=== PATIENT | male | born 1940 | race Caucasian/White ===

== ENCOUNTER → 2018-10-11 | Outpatient (REF) | payer MEDICARE, OTHER ==
[2018-10-11 19:54] LABS: APPEARANCE, URINE CLEAR (CLEAR); BACTERIA, URINE AUTO NEGATIVE (NEGATIVE); BILIRUBIN, URINE AUTO NEGATIVE (NEGATIVE); BLOOD, URINE BLOOD NEGATIVE (NEGATIVE); COLOR, URINE YELLOW (YELLOW); GLUCOSE, URINE (UA) AUTO NEGATIVE (NEGATIVE); KETONE, URINE AUTO NEGATIVE (NEGATIVE); LEUKOCYTE ESTERASE, URINE AUTO TRACE (NEGATIVE); MUCUS, URINE SMALL (NEGATIVE); NITRITE, URINE AUTO NEGATIVE (NEGATIVE); PROTEIN, URINE AUTO NEGATIVE (NEGATIVE); RBC, URINE AUTO 0 /HPF (0-3); SPECIFIC GRAVITY URINE AUTO 1.024 (1.002-1.035); SQUAMOUS EPITHELIAL CELL UR AU 0 /HPF (0-6); WBC, URINE AUTO 4 /HPF (0-3)
== END ==
LOC: M SMT 17:38
PROVIDERS: ATTEND Nurse Practitioner Women's Health
DX: N40.0 Benign prostatic hyperplasia without lower urinary tract symptoms (principal)
CPT/HCPCS: 51798; 81001; 87086; G0463

== ENCOUNTER → 2020-01-31 | Outpatient (CLI) | payer MEDICARE, MEDICAID | LOC: M LABSMTC 09:31 | PROVIDERS: ATTEND Nurse Practitioner Family | DX: Z01.818 Encounter for other preprocedural examination (principal) | CPT/HCPCS: C9803; U0003 ==

== ENCOUNTER 2021-04-28 09:26 | Inpatient (IN) | payer MEDICARE, MEDICAID ==
[~2021-04-28] VITALS: Ht 193 cm; Wt 79.2 kg
[2021-04-28 10:56] LABS: BASO % 0.3 % (0.0-1.0); EOS # 0.1 10^3/uL (0.0-0.5); EOS % 0.4 % (0.0-3.0); HEMATOCRIT 35.6 % (42.0-52.0); HEMOGLOBIN 11.7 g/dl (13.5-17.5); LYMPH # 0.7 10^3/uL (1.5-5.0); LYMPH % 6.1 % (24.0-44.0); MEAN CORPUSCULAR HEMOGLOBIN 30.5 pg (27.0-33.0); MEAN CORPUSCULAR HGB CONC 32.9 g/dl (32.0-36.5); MONO # 1.5 10^3/uL (0.0-0.8); MONO % 12.6 % (2.0-8.0); NEUTROPHILS # 9.4 10^3/uL (1.5-8.5); NEUTROPHILS % 79.8 % (36.0-66.0); PLATELET COUNT, AUTOMATED 191 10^3/uL (150-450); RED BLOOD COUNT 3.83 10^6/uL (4.30-6.10); WHITE BLOOD COUNT 11.8 10^3/uL (4.0-10.0)
[2021-04-28 11:30] LABS: BLOOD UREA NITROGEN 13 MG/DL (7-18); CREATININE FOR GFR 0.83 MG/DL (0.70-1.30); GLUCOSE, FASTING 171 MG/DL (70-100)
[2021-04-28 11:31] LABS: ALBUMIN 3.6 GM/DL (3.2-5.2); ALT/SGPT 20 U/L (12-78); BILIRUBIN,DIRECT 0.2 MG/DL (0.0-0.2); BILIRUBIN,TOTAL 0.7 MG/DL (0.2-1.0); CALCIUM LEVEL 8.9 MG/DL (8.8-10.2); CARBON DIOXIDE LEVEL 27 MEQ/L (21-32); CHLORIDE LEVEL 98 MEQ/L (98-107); GLOMERULAR FILTRATION RATE > 60.0 (>35); POTASSIUM SERUM 4.1 MEQ/L (3.5-5.1); SODIUM LEVEL 133 MEQ/L (136-145); THYROID STIMULATING HORMONE 0.683 uIU/ML (0.358-3.740); TOTAL PROTEIN 6.9 GM/DL (6.4-8.2)
[2021-04-28] MEDS ORDERED: NS 1,000 ML IV SCH ×2 (11:40→22:00)
[2021-04-28] MEDS ORDERED: ACET500T15 PO (12:35)
[2021-04-28] MEDS ORDERED: TRAZ-189 PO (12:35)
[2021-04-28] MEDS ORDERED: ASPI81TA26 PO (12:35)
[2021-04-28] MEDS ORDERED: OXYB-54 PO (12:35)
[2021-04-28] MEDS ORDERED: ROSU40TA4 PO (12:35)
[2021-04-28] MEDS ORDERED: DOCU250C7 PO (12:35)
[2021-04-28] MEDS ORDERED: METF10004 PO (12:35)
[2021-04-28] MEDS ORDERED: FLOM0.4C39 PO (12:35)
[2021-04-28] MEDS ORDERED: JANU100T PO (12:35)
[2021-04-28] MEDS ORDERED: LYRI75CA PO (12:35)
[2021-04-28] MEDS ORDERED: OMEP-173 PO (12:35)
[2021-04-28] MEDS ORDERED: BUSP30TA PO (12:35)
[2021-04-28] MEDS ORDERED: FINA5TAB2 PO (12:35)
[2021-04-28] MEDS ORDERED: SYNT100T PO (12:35)
[2021-04-28] MEDS ORDERED: FAMO40TA3 PO (12:35)
[2021-04-28] MEDS ORDERED: REGL5TAB2 PO (12:35)
[2021-04-28] MEDS ORDERED: DIFL200T PO (12:35)
[2021-04-28] MEDS ORDERED: PLAV1TAB2 PO (12:35)
[2021-04-28] MEDS ORDERED: HYDR-3363 PO (12:35)
[2021-04-28] MEDS ORDERED: MELA3TAB13 PO (12:35)
[2021-04-28] MEDS ORDERED: HOME MED LIST COMPLETE! XX SCH (12:35)
[2021-04-28] MEDS ORDERED: DULO60CA35 PO (12:35)
[2021-04-28] MEDS ORDERED: METO50TA7 PO (12:35)
[2021-04-28] MEDS ORDERED: GLUCAGON INJ 1MG VIAL SC PRN ×2 (17:40→18:25)
[2021-04-28] MEDS ORDERED: GLUCOSE 4GM CHEW TABLET PO PRN ×2 (17:40→18:25)
[2021-04-28] MEDS ORDERED: DEXTROSE 50% 50 ML SYRINGE IV PRN ×2 (17:40→18:25)
[2021-04-28 17:57] VITALS: BP 178/79
[2021-04-28] MEDS ORDERED: HumaLOG INSULIN (NovoLOG) PER UNIT SC SCH ×2 (18:00→21:00)
[2021-04-28] MEDS ORDERED: ROSUVASTATIN 10 MG TAB (CRESTOR) PO SCH (18:00)
[2021-04-28 20:00] VITALS: BP 129/72
[2021-04-28] MEDS ORDERED: traZODone 100 MG TAB PO SCH (21:00)
[2021-04-28] MEDS ORDERED: TAMSULOSIN 0.4 MG CAP PO SCH (21:00)
[2021-04-28] MEDS ORDERED: FAMOTIDINE 20 MG TAB PO SCH (21:00)
[2021-04-28] MEDS: METOPROLOL TART 50 MG TAB PO SCH (21:17)
[2021-04-28] MEDS: ACETAMINOPHEN 500 MG TAB PO SCH (21:17)
[2021-04-28] MEDS: NYSTATIN 500,000 U/5 ML SUSP UDC SS SCH (21:17)
[2021-04-28] MEDS: HEPARIN SOD (PORCINE) 5000UNITS/ML 1ML VIAL/SYRINGE SC SCH (21:17)
[2021-04-29] VITALS: BP 142/76
[2021-04-29 04:00] VITALS: BP 132/73
[2021-04-29 05:35] LABS: BASO % 0.4 % (0.0-1.0); EOS # 0.1 10^3/uL (0.0-0.5); HEMATOCRIT 34.2 % (42.0-52.0); HEMOGLOBIN 11.2 g/dl (13.5-17.5); LYMPH # 0.9 10^3/uL (1.5-5.0); LYMPH % 9.1 % (24.0-44.0); MEAN CORPUSCULAR HEMOGLOBIN 30.3 pg (27.0-33.0); MEAN CORPUSCULAR HGB CONC 32.7 g/dl (32.0-36.5); MEAN CORPUSCULAR VOLUME 92.4 fl (80.0-96.0); MONO # 1.4 10^3/uL (0.0-0.8); MONO % 13.1 % (2.0-8.0); NEUTROPHILS # 7.8 10^3/uL (1.5-8.5); NEUTROPHILS % 75.8 % (36.0-66.0); PLATELET COUNT, AUTOMATED 175 10^3/uL (150-450); WHITE BLOOD COUNT 10.3 10^3/uL (4.0-10.0)
[2021-04-29] MEDS ORDERED: LEVOTHYROXINE 100MCG TABLET (0.1MG) PO SCH (06:00)
[2021-04-29 06:03] LABS: BLOOD UREA NITROGEN 13 MG/DL (7-18); CARBON DIOXIDE LEVEL 25 MEQ/L (21-32); CHLORIDE LEVEL 104 MEQ/L (98-107); GLOMERULAR FILTRATION RATE > 60.0 (>35); GLUCOSE, FASTING 163 MG/DL (70-100); POTASSIUM SERUM 3.6 MEQ/L (3.5-5.1); SODIUM LEVEL 137 MEQ/L (136-145)
[2021-04-29] MEDS ORDERED: HumaLOG INSULIN (NovoLOG) PER UNIT SC SCH (07:30)
[2021-04-29 08:00] VITALS: BP 116/72
[2021-04-29 08:08] VITALS: BP 116/75
[2021-04-29] MEDS: METOPROLOL TART 50 MG TAB PO SCH (08:08)
[2021-04-29] MEDS: ACETAMINOPHEN 500 MG TAB PO SCH (08:10)
[2021-04-29] MEDS: HEPARIN SOD (PORCINE) 5000UNITS/ML 1ML VIAL/SYRINGE SC SCH (08:12)
[2021-04-29] MEDS: NYSTATIN 500,000 U/5 ML SUSP UDC SS SCH (08:12)
[2021-04-29] MEDS ORDERED: FINASTERIDE 5 MG TAB PO SCH (09:00)
[2021-04-29] MEDS ORDERED: oxyBUTYnin *DITROPAN XL* 5 MG TABCR PO SCH (09:00)
[2021-04-29] MEDS ORDERED: CLOPIDOGREL 75 MG TAB PO SCH (09:00)
[2021-04-29] MEDS ORDERED: ASPIRIN 81MG ENTERIC TABLET PO SCH (09:00)
[2021-04-29] MEDS ORDERED: OMEPRAZOLE 20 MG CAP PO SCH (09:00)
[2021-04-29] MEDS ORDERED: DOCUSATE SOD LIQ 100MG/10ML UDC PO SCH (09:00)
[2021-04-29] MEDS ORDERED: BUSP15TA47 PO (11:15)
[2021-04-29] MEDS ORDERED: TRAZ-252 PO (11:15)
== END 2021-04-29 13:54 | disposition home or self-care (01) | DRG 91 ==
LOC: M ED 09:26 → M ICU 14:46 → ENRESERV 16:58
PROVIDERS: ADMIT Internal Medicine; ATTEND Internal Medicine
DX: G92.8 Other toxic encephalopathy (principal); U07.1 COVID-19; B38.0 Acute pulmonary coccidioidomycosis; I25.10 Atherosclerotic heart disease of native coronary artery without angina pectoris; I10 Essential (primary) hypertension; E11.9 Type 2 diabetes mellitus without complications; G31.84 Mild cognitive impairment of uncertain or unknown etiology; N40.0 Benign prostatic hyperplasia without lower urinary tract symptoms; Z95.810 Presence of automatic (implantable) cardiac defibrillator; Z95.5 Presence of coronary angioplasty implant and graft; Z87.891 Personal history of nicotine dependence; T37.8X5A Adverse effect of other specified systemic anti-infectives and antiparasitics, initial encounter; K59.00 Constipation, unspecified; Z79.02 Long term (current) use of antithrombotics/antiplatelets; Z79.899 Other long term (current) drug therapy; Z79.84 Long term (current) use of oral hypoglycemic drugs

== ENCOUNTER 2021-04-30 03:54 | Inpatient (IN) | payer MEDICARE, MEDICAID ==
[2021-04-30] VITALS (10 sets, daily range): BP systolic 95–170; BP diastolic 57–74; O2SAT 91–95
[~2021-04-30] VITALS: Ht 188 cm; Wt 74.4 kg
[~2021-04-30 03:54] MED LIST: ACET500T15 PO; ASPI81TA26 PO; BUSP15TA47 PO; BUSP30TA PO; DIFL200T PO; DOCU250C7 PO; DULO60CA35 PO; FAMO40TA3 PO; FINA5TAB2 PO; FLOM0.4C39 PO; HYDR-3363 PO; JANU100T PO; LYRI75CA PO; MELA3TAB13 PO; METF10004 PO; METO50TA7 PO; OMEP-173 PO; OXYB-54 PO; PLAV1TAB2 PO; REGL5TAB2 PO; ROSU40TA4 PO; SYNT100T PO; TRAZ-189 PO; TRAZ-252 PO
[2021-04-30] MEDS: dexameTHASONE 4 MG/ML 1ML VIAL (J1100 PER 1MG) IV SCH (10:45)
[2021-04-30 11:01] LABS: BASO % 0.1 % (0.0-1.0); HEMATOCRIT 34.6 % (42.0-52.0); HEMOGLOBIN 11.4 g/dl (13.5-17.5); LYMPH # 0.4 10^3/uL (1.5-5.0); LYMPH % 4.6 % (24.0-44.0); MEAN CORPUSCULAR HEMOGLOBIN 30.2 pg (27.0-33.0); MEAN CORPUSCULAR HGB CONC 32.9 g/dl (32.0-36.5); MEAN CORPUSCULAR VOLUME 91.5 fl (80.0-96.0); MONO # 0.6 10^3/uL (0.0-0.8); MONO % 6.8 % (2.0-8.0); NEUTROPHILS # 7.1 10^3/uL (1.5-8.5); NEUTROPHILS % 87.6 % (36.0-66.0); PLATELET COUNT, AUTOMATED 207 10^3/uL (150-450); RED BLOOD COUNT 3.78 10^6/uL (4.30-6.10); WHITE BLOOD COUNT 8.1 10^3/uL (4.0-10.0)
[2021-04-30 11:12] LABS: INR 1.02; PROTHROMBIN TIME 13.8 SECONDS (12.7-14.5)
[2021-04-30 11:13] LABS: PARTIAL THROMBOPLASTIN TIME 39.6 SECONDS (25.9-37.0)
[2021-04-30 11:16] LABS: D-DIMER QUANT 1413.49 ng/ml (<500)
[2021-04-30] MEDS ORDERED: DEXTROSE 50% 50 ML SYRINGE IV PRN (11:55)
[2021-04-30] MEDS ORDERED: GLUCOSE 4GM CHEW TABLET PO PRN (11:55)
[2021-04-30] MEDS ORDERED: GLUCAGON INJ 1MG VIAL SC PRN (11:55)
[2021-04-30] MEDS ORDERED: ALBUTEROL 90 MCG/ACT 8GM HFA INHALER INH PRN (12:00)
[2021-04-30] MEDS ORDERED: ALBUTEROL SULFATE 2.5 MG/0.5 ML INH NEB SOLN INH PRN (12:00)
[2021-04-30] MEDS ORDERED: IPRATROPIUM 0.5MG/ALBUTEROL 2.5MG INH SOL UD 3ML (DUONEB) INH PRN (12:00)
[2021-04-30 12:45] LABS: ALBUMIN 3.2 GM/DL (3.2-5.2); ALT/SGPT 26 U/L (12-78); BILIRUBIN,DIRECT 0.2 MG/DL (0.0-0.2); BILIRUBIN,TOTAL 0.6 MG/DL (0.2-1.0); BLOOD UREA NITROGEN 18 MG/DL (7-18); CALCIUM LEVEL 9.1 MG/DL (8.8-10.2); CARBON DIOXIDE LEVEL 24 MEQ/L (21-32); CHLORIDE LEVEL 101 MEQ/L (98-107); CREATININE FOR GFR 0.91 MG/DL (0.70-1.30); FERRITIN 609 NG/ML (26-388); GLOMERULAR FILTRATION RATE > 60.0 (>35); GLUCOSE, FASTING 206 MG/DL (70-100); LDH LACTATE DEHYDROGENASE 501 U/L (87-241); MAGNESIUM LEVEL 2.3 MG/DL (1.8-2.4); NT-PRO BNP 1282 PG/ML (<450); POTASSIUM SERUM 3.6 MEQ/L (3.5-5.1); SODIUM LEVEL 133 MEQ/L (136-145); TOTAL PROTEIN 7.4 GM/DL (6.4-8.2)
[2021-04-30] MEDS ORDERED: REMDESIVIR 200 MG in NS 250 ML IV ONE (13:00)
[2021-04-30] MEDS: HumaLOG INSULIN (NovoLOG) PER UNIT SC SCH ×3 (13:18→20:45)
[2021-04-30] MEDS: cefTRIAXone SOD 1 GM in D5W MINI-BAG PLUS 50 ML IV SCH (13:18)
[2021-04-30] MEDS ORDERED: SODIUM CHLORIDE 0.9% INJ 10 ML SYR IV ONE (15:00)
[2021-04-30] MEDS ORDERED: HOME MED LIST COMPLETE! XX SCH (15:55)
[2021-04-30] MEDS ORDERED: METOCLOPRAMIDE 5 MG TAB PO PRN (16:25)
[2021-04-30] MEDS: DOXYCYCLINE HYCLATE 100 MG in D5W MINI-BAG PLUS 100 ML IV SCH (16:29)
[2021-04-30] MEDS ORDERED: OLANZapine INTRAMUSCULAR 10MG VIAL IM ONE (16:45)
[2021-04-30] MEDS: ROSUVASTATIN 10 MG TAB (CRESTOR) PO SCH (17:16)
[2021-04-30] MEDS ORDERED: ASPIRIN 81 MG CHEW TABLET As Ordered ONE (18:14)
[2021-04-30] MEDS ORDERED: ASPIRIN 81 MG CHEW TABLET PO ONE (18:15)
[2021-04-30] MEDS ORDERED: SODIUM CHLORIDE 0.9% 1000ML IV ONE (18:35)
[2021-04-30] MEDS ORDERED: ACETAMINOPHEN *IV* 1,000 MG in IV 1 EA IV ONE (18:55)
[2021-04-30] MEDS: ACETAMINOPHEN 500 MG TAB PO SCH (19:03)
[2021-04-30] MEDS ORDERED: NS 1,000 ML IV SCH (19:10)
[2021-04-30] MEDS ORDERED: ACETAMINOPHEN 500 MG TAB PO ONE (19:15)
[2021-04-30 20:03] LABS: BLOOD UREA NITROGEN 18 MG/DL (7-18); CARBON DIOXIDE LEVEL 24 MEQ/L (21-32); CHLORIDE LEVEL 104 MEQ/L (98-107); GLOMERULAR FILTRATION RATE > 60.0 (>35); GLUCOSE, FASTING 251 MG/DL (70-100); MAGNESIUM LEVEL 2.2 MG/DL (1.8-2.4); POTASSIUM SERUM 3.8 MEQ/L (3.5-5.1); SODIUM LEVEL 136 MEQ/L (136-145)
[2021-04-30] MEDS: NS 1,000 ML IV SCH (20:44)
[2021-04-30] MEDS: FAMOTIDINE 20 MG TAB PO SCH (20:44)
[2021-04-30] MEDS: TAMSULOSIN 0.4 MG CAP PO SCH (20:44)
[2021-04-30] MEDS: busPIRone 5 MG TAB PO SCH (20:44)
[2021-04-30] MEDS: METOPROLOL TART 50 MG TAB PO SCH (20:44)
[2021-04-30] MEDS: traZODone 50 MG TAB PO SCH (20:44)
[2021-04-30] MEDS: HEPARIN SOD (PORCINE) 5000UNITS/ML 1ML VIAL/SYRINGE SQ SCH (20:45)
[2021-04-30] MEDS ORDERED: FLUCONAZOLE 100 MG TAB PO SCH (21:00)
[2021-05-01] VITALS (11 sets, daily range): BP systolic 106–158; BP diastolic 55–95; O2SAT 97
[2021-05-01] MEDS: DOXYCYCLINE HYCLATE 100 MG in D5W MINI-BAG PLUS 100 ML IV SCH ×2 (02:17→14:57)
[2021-05-01] MEDS: NS 1,000 ML IV SCH (04:57)
[2021-05-01 05:23] LABS: BASO % 0.2 % (0.0-1.0); EOS % 0.1 % (0.0-3.0); HEMATOCRIT 31.3 % (42.0-52.0); HEMOGLOBIN 10.2 g/dl (13.5-17.5); LYMPH # 0.9 10^3/uL (1.5-5.0); LYMPH % 8.5 % (24.0-44.0); MEAN CORPUSCULAR HEMOGLOBIN 29.9 pg (27.0-33.0); MEAN CORPUSCULAR HGB CONC 32.6 g/dl (32.0-36.5); MEAN CORPUSCULAR VOLUME 91.8 fl (80.0-96.0); MONO % 9.3 % (2.0-8.0); NEUTROPHILS # 8.7 10^3/uL (1.5-8.5); NEUTROPHILS % 81.1 % (36.0-66.0); PLATELET COUNT, AUTOMATED 210 10^3/uL (150-450); RED BLOOD COUNT 3.41 10^6/uL (4.30-6.10); WHITE BLOOD COUNT 10.7 10^3/uL (4.0-10.0)
[2021-05-01] MEDS: LEVOTHYROXINE 100MCG TABLET (0.1MG) PO SCH (05:47)
[2021-05-01 05:49] LABS: ALBUMIN 2.5 GM/DL (3.2-5.2); ALT/SGPT 22 U/L (12-78); BILIRUBIN,DIRECT 0.2 MG/DL (0.0-0.2); BILIRUBIN,TOTAL 0.3 MG/DL (0.2-1.0); BLOOD UREA NITROGEN 18 MG/DL (7-18); CALCIUM LEVEL 8.6 MG/DL (8.8-10.2); CARBON DIOXIDE LEVEL 26 MEQ/L (21-32); CHLORIDE LEVEL 109 MEQ/L (98-107); CREATININE FOR GFR 0.91 MG/DL (0.70-1.30); GLOMERULAR FILTRATION RATE > 60.0 (>35); GLUCOSE, FASTING 155 MG/DL (70-100); MAGNESIUM LEVEL 2.3 MG/DL (1.8-2.4); POTASSIUM SERUM 3.7 MEQ/L (3.5-5.1); SODIUM LEVEL 140 MEQ/L (136-145); TOTAL PROTEIN 5.8 GM/DL (6.4-8.2)
[2021-05-01] MEDS: HumaLOG INSULIN (NovoLOG) PER UNIT SC SCH ×4 (08:58→20:34)
[2021-05-01] MEDS: FINASTERIDE 5 MG TAB PO SCH (08:59)
[2021-05-01] MEDS: DULoxetine 30MG CAPSULE (CYMBALTA) PO SCH (08:59)
[2021-05-01] MEDS: oxyBUTYnin *DITROPAN XL* 5 MG TABCR PO SCH (08:59)
[2021-05-01] MEDS: ASPIRIN 81MG ENTERIC TABLET PO SCH (08:59)
[2021-05-01] MEDS: busPIRone 5 MG TAB PO SCH ×2 (08:59→20:22)
[2021-05-01] MEDS: METOPROLOL TART 50 MG TAB PO SCH ×2 (08:59→20:22)
[2021-05-01] MEDS: CLOPIDOGREL 75 MG TAB PO SCH (08:59)
[2021-05-01] MEDS: dexameTHASONE 4 MG/ML 1ML VIAL (J1100 PER 1MG) IV SCH (09:00)
[2021-05-01] MEDS: ACETAMINOPHEN 500 MG TAB PO SCH ×2 (09:00→20:22)
[2021-05-01] MEDS: OMEPRAZOLE 20MG CAP PO SCH (09:00)
[2021-05-01] MEDS: NYSTATIN 100,000 UNITS/GM TOPICAL PWD 15 GM TOP SCH (09:01)
[2021-05-01] MEDS: HEPARIN SOD (PORCINE) 5000UNITS/ML 1ML VIAL/SYRINGE SQ SCH (09:01)
[2021-05-01] MEDS: DOCUSATE SOD LIQ 100MG/10ML UDC PO SCH (09:02)
[2021-05-01] MEDS: PREGABALIN 75 MG CAP(LYRICA) PO SCH (10:18)
[2021-05-01] MEDS: BARICITINIB 2MG TABLET (OLUMIANT) FOR EUA PO SCH (12:20)
[2021-05-01] MEDS: cefTRIAXone SOD 1 GM in D5W MINI-BAG PLUS 50 ML IV SCH (12:20)
[2021-05-01] MEDS: REMDESIVIR 100 MG in NS 250 ML IV SCH (13:20)
[2021-05-01] MEDS: SODIUM CHLORIDE 0.9% INJ 10 ML SYR IV SCH (14:57)
[2021-05-01 16:08] LABS: MYCOPLASMA PNEUMONIAE IgG 708 U/mL (0-99); MYCOPLASMA PNEUMONIAE IgM <770 U/mL (0-769)
[2021-05-01] MEDS: ROSUVASTATIN 10 MG TAB (CRESTOR) PO SCH (17:18)
[2021-05-01] MEDS: traZODone 50 MG TAB PO SCH (20:21)
[2021-05-01] MEDS: FAMOTIDINE 20 MG TAB PO SCH (20:21)
[2021-05-01] MEDS: TAMSULOSIN 0.4 MG CAP PO SCH (20:22)
[2021-05-02] VITALS (22 sets, daily range): BP systolic 79–209; BP diastolic 50–94
[2021-05-02] MEDS: DOXYCYCLINE HYCLATE 100 MG in D5W MINI-BAG PLUS 100 ML IV SCH ×2 (01:58→14:36)
[2021-05-02 04:58] LABS: BASO % 0.1 % (0.0-1.0); EOS # 0.1 10^3/uL (0.0-0.5); EOS % 0.4 % (0.0-3.0); HEMATOCRIT 35.5 % (42.0-52.0); HEMOGLOBIN 11.6 g/dl (13.5-17.5); LYMPH # 2.2 10^3/uL (1.5-5.0); LYMPH % 15.3 % (24.0-44.0); MEAN CORPUSCULAR HEMOGLOBIN 29.9 pg (27.0-33.0); MEAN CORPUSCULAR HGB CONC 32.7 g/dl (32.0-36.5); MEAN CORPUSCULAR VOLUME 91.5 fl (80.0-96.0); MONO # 1.2 10^3/uL (0.0-0.8); MONO % 8.3 % (2.0-8.0); NEUTROPHILS % 74.9 % (36.0-66.0); PLATELET COUNT, AUTOMATED 284 10^3/uL (150-450); RED BLOOD COUNT 3.88 10^6/uL (4.30-6.10); WHITE BLOOD COUNT 14.6 10^3/uL (4.0-10.0)
[2021-05-02] MEDS ORDERED: OLANZapine INTRAMUSCULAR 10MG VIAL IM ONE (05:00)
[2021-05-02] MEDS ORDERED: NS 1,000 ML IV SCH (05:10)
[2021-05-02 05:17] LABS: INR 0.99; PROTHROMBIN TIME 13.5 SECONDS (12.7-14.5)
[2021-05-02 05:18] LABS: PARTIAL THROMBOPLASTIN TIME 36.5 SECONDS (25.9-37.0)
[2021-05-02 05:24] LABS: ALT/SGPT 31 U/L (12-78); BILIRUBIN,DIRECT 0.2 MG/DL (0.0-0.2); BILIRUBIN,TOTAL 0.4 MG/DL (0.2-1.0); BLOOD UREA NITROGEN 20 MG/DL (7-18); CALCIUM LEVEL 8.9 MG/DL (8.8-10.2); CARBON DIOXIDE LEVEL 24 MEQ/L (21-32); CHLORIDE LEVEL 106 MEQ/L (98-107); CREATININE FOR GFR 1.01 MG/DL (0.70-1.30); FERRITIN 1177 NG/ML (26-388); GLOMERULAR FILTRATION RATE > 60.0 (>35); GLUCOSE, FASTING 151 MG/DL (70-100); LDH LACTATE DEHYDROGENASE 699 U/L (87-241); MAGNESIUM LEVEL 2.3 MG/DL (1.8-2.4); NT-PRO BNP 2541 PG/ML (<450); POTASSIUM SERUM 3.4 MEQ/L (3.5-5.1); SODIUM LEVEL 138 MEQ/L (136-145); TOTAL PROTEIN 6.4 GM/DL (6.4-8.2)
[2021-05-02 05:29] LABS: ABG BASE EXCESS -4.1 (-2.0-2.0); ABG HCO3 18.2 MEQ/L (22.0-26.0); ABG O2 SATURATION 99.1 % (95.0-99.0); ABG PARTIAL PRESSURE CO2 25.6 mmHg (35.0-45.0); ABG PARTIAL PRESSURE O2 140.2 mmHg (75.0-100.0); ABG STANDARD HCO3 21.1 MEQ/L (22.0-26.0)
[2021-05-02] MEDS ORDERED: ISOVUE-370 76% 100ML VIAL As Ordered ONE (06:04)
[2021-05-02] MEDS: LEVOTHYROXINE 100MCG TABLET (0.1MG) PO SCH (06:48)
[2021-05-02] MEDS: ACETAMINOPHEN 500 MG TAB PO SCH ×2 (06:48→20:05)
[2021-05-02] MEDS: HumaLOG INSULIN (NovoLOG) PER UNIT SC SCH ×4 (07:30→20:05)
[2021-05-02] MEDS ORDERED: HALOPERIDOL 5MG/ML VIAL (J1630 PER 1) IV ONE (07:40)
[2021-05-02] MEDS ORDERED: LR 1,000 ML IV SCH ×2 (08:30→14:00)
[2021-05-02] MEDS ORDERED: KCL 10MEQ/100ML SWI (KRUN) 10 MEQ in IV 1 EA IV SCH (09:00)
[2021-05-02] MEDS: busPIRone 5 MG TAB PO SCH ×2 (09:05→20:04)
[2021-05-02] MEDS: DULoxetine 30MG CAPSULE (CYMBALTA) PO SCH (09:06)
[2021-05-02] MEDS: BARICITINIB 2MG TABLET (OLUMIANT) FOR EUA PO SCH (09:06)
[2021-05-02] MEDS: ASPIRIN 81MG ENTERIC TABLET PO SCH (09:06)
[2021-05-02] MEDS: CLOPIDOGREL 75 MG TAB PO SCH (09:07)
[2021-05-02] MEDS: PREGABALIN 75 MG CAP(LYRICA) PO SCH (09:07)
[2021-05-02] MEDS: OMEPRAZOLE 20MG CAP PO SCH (09:07)
[2021-05-02] MEDS: oxyBUTYnin *DITROPAN XL* 5 MG TABCR PO SCH (09:07)
[2021-05-02] MEDS: METOPROLOL TART 50 MG TAB PO SCH ×2 (09:07→20:04)
[2021-05-02] MEDS: DOCUSATE SOD LIQ 100MG/10ML UDC PO SCH (09:08)
[2021-05-02] MEDS: NYSTATIN 100,000 UNITS/GM TOPICAL PWD 15 GM TOP SCH (09:08)
[2021-05-02] MEDS: dexameTHASONE 4 MG/ML 1ML VIAL (J1100 PER 1MG) IV SCH (09:08)
[2021-05-02] MEDS: FINASTERIDE 5 MG TAB PO SCH (09:10)
[2021-05-02] MEDS ORDERED: POTASSIUM CHLORIDE 10MEQ SR TABLET PO ONE (09:40)
[2021-05-02] MEDS: cefTRIAXone SOD 1 GM in D5W MINI-BAG PLUS 50 ML IV SCH (12:04)
[2021-05-02] MEDS: REMDESIVIR 100 MG in NS 250 ML IV SCH (12:47)
[2021-05-02 14:12] LABS: CHLAMYDIA PNEUMONIAE IgG <1:16 (Neg:<1:16); CHLAMYDIA PNEUMONIAE IgM <1:10 (Neg:<1:10)
[2021-05-02] MEDS: SODIUM CHLORIDE 0.9% INJ 10 ML SYR IV SCH (14:30)
[2021-05-02 16:11] LABS: BODY FLUID CULTURE Not indicated. (.); LEGIONELLA ANTIGEN URINE Negative (Negative); ORGANISM ID Negative (.); SPECIMEN SOURCE Urine (.); URINE STREP PNEUMONIAE ANTIGEN Negative (Negative)
[2021-05-02] MEDS: ROSUVASTATIN 10 MG TAB (CRESTOR) PO SCH (17:47)
[2021-05-02] MEDS: TAMSULOSIN 0.4 MG CAP PO SCH (20:04)
[2021-05-02] MEDS: traZODone 50 MG TAB PO SCH (20:04)
[2021-05-02] MEDS: FAMOTIDINE 20 MG TAB PO SCH (20:04)
[2021-05-02] MEDS: ENOXAPARIN 40MG/0.4ML SYRINGE (J1650 PER 10MG) SC SCH (20:05)
[2021-05-03] VITALS (7 sets, daily range): BP systolic 67–154; BP diastolic 53–78
[2021-05-03] MEDS: DOXYCYCLINE HYCLATE 100 MG in D5W MINI-BAG PLUS 100 ML IV SCH ×2 (01:03→15:19)
[2021-05-03 04:56] LABS: BASO % 0.3 % (0.0-1.0); EOS # 0.2 10^3/uL (0.0-0.5); EOS % 1.5 % (0.0-3.0); HEMATOCRIT 31.2 % (42.0-52.0); HEMOGLOBIN 10.2 g/dl (13.5-17.5); LYMPH # 1.2 10^3/uL (1.5-5.0); LYMPH % 10.6 % (24.0-44.0); MEAN CORPUSCULAR HEMOGLOBIN 29.7 pg (27.0-33.0); MEAN CORPUSCULAR HGB CONC 32.7 g/dl (32.0-36.5); MONO % 8.8 % (2.0-8.0); NEUTROPHILS # 9.1 10^3/uL (1.5-8.5); NEUTROPHILS % 77.9 % (36.0-66.0); PLATELET COUNT, AUTOMATED 244 10^3/uL (150-450); RED BLOOD COUNT 3.43 10^6/uL (4.30-6.10); WHITE BLOOD COUNT 11.7 10^3/uL (4.0-10.0)
[2021-05-03] MEDS: LEVOTHYROXINE 75MCG TABLET (0.075MG) PO SCH (05:02)
[2021-05-03 05:19] LABS: BLOOD UREA NITROGEN 16 MG/DL (7-18); CALCIUM LEVEL 8.6 MG/DL (8.8-10.2); CARBON DIOXIDE LEVEL 26 MEQ/L (21-32); CHLORIDE LEVEL 108 MEQ/L (98-107); CREATININE FOR GFR 0.86 MG/DL (0.70-1.30); GLOMERULAR FILTRATION RATE > 60.0 (>35); GLUCOSE, FASTING 123 MG/DL (70-100); MAGNESIUM LEVEL 2.3 MG/DL (1.8-2.4); POTASSIUM SERUM 3.6 MEQ/L (3.5-5.1); SODIUM LEVEL 137 MEQ/L (136-145)
[2021-05-03 09:03] LABS: ABG BASE EXCESS -3.2 (-2.0-2.0); ABG HCO3 18.4 MEQ/L (22.0-26.0); ABG O2 SATURATION 93.6 % (95.0-99.0); ABG PARTIAL PRESSURE CO2 24.1 mmHg (35.0-45.0); ABG PARTIAL PRESSURE O2 64.7 mmHg (75.0-100.0); ABG STANDARD HCO3 21.7 MEQ/L (22.0-26.0); ABG TOTAL CO2 19.2 MEQ/L (23.0-31.0); ABG pH (ARTERIAL) 7.501 UNITS (7.350-7.450)
[2021-05-03] MEDS: ACETAMINOPHEN 500 MG TAB PO SCH ×2 (09:09→20:07)
[2021-05-03] MEDS: CLOPIDOGREL 75 MG TAB PO SCH (09:10)
[2021-05-03] MEDS: OMEPRAZOLE 20MG CAP PO SCH (09:10)
[2021-05-03] MEDS: BARICITINIB 2MG TABLET (OLUMIANT) FOR EUA PO SCH (09:10)
[2021-05-03] MEDS: PREGABALIN 75 MG CAP(LYRICA) PO SCH (09:10)
[2021-05-03] MEDS: DOCUSATE SOD LIQ 100MG/10ML UDC PO SCH (09:11)
[2021-05-03] MEDS: oxyBUTYnin *DITROPAN XL* 5 MG TABCR PO SCH (09:11)
[2021-05-03] MEDS: METOPROLOL TART 50 MG TAB PO SCH ×2 (09:11→20:14)
[2021-05-03] MEDS: ASPIRIN 81MG ENTERIC TABLET PO SCH (09:11)
[2021-05-03] MEDS: NYSTATIN 100,000 UNITS/GM TOPICAL PWD 15 GM TOP SCH (09:12)
[2021-05-03] MEDS: busPIRone 5 MG TAB PO SCH ×2 (09:12→20:06)
[2021-05-03] MEDS: DULoxetine 30MG CAPSULE (CYMBALTA) PO SCH (09:12)
[2021-05-03] MEDS: FINASTERIDE 5 MG TAB PO SCH (09:12)
[2021-05-03] MEDS: HumaLOG INSULIN (NovoLOG) PER UNIT SC SCH ×4 (09:12→20:19)
[2021-05-03] MEDS: dexameTHASONE 4 MG/ML 1ML VIAL (J1100 PER 1MG) IV SCH (09:12)
[2021-05-03 09:40] LABS: CK-MB VALUE MASS 2.3 NG/ML (<3.6); MB/CK RELATIVE INDEX 0.95 (< OR =4)
[2021-05-03] MEDS ORDERED: LR 1,000 ML IV SCH (11:00)
[2021-05-03] MEDS: cefTRIAXone SOD 1 GM in D5W MINI-BAG PLUS 50 ML IV SCH (13:23)
[2021-05-03] MEDS: REMDESIVIR 100 MG in NS 250 ML IV SCH (14:14)
[2021-05-03] MEDS: SODIUM CHLORIDE 0.9% INJ 10 ML SYR IV SCH (14:14)
[2021-05-03] MEDS: ROSUVASTATIN 10 MG TAB (CRESTOR) PO SCH (17:09)
[2021-05-03] MEDS: traZODone 50 MG TAB PO SCH (20:07)
[2021-05-03] MEDS: TAMSULOSIN 0.4 MG CAP PO SCH (20:07)
[2021-05-03] MEDS: FAMOTIDINE 20 MG TAB PO SCH (20:07)
[2021-05-03] MEDS: ENOXAPARIN 40MG/0.4ML SYRINGE (J1650 PER 10MG) SC SCH (20:08)
[2021-05-04] VITALS (7 sets, daily range): BP systolic 116–171; BP diastolic 56–95
[2021-05-04] MEDS: DOXYCYCLINE HYCLATE 100 MG in D5W MINI-BAG PLUS 100 ML IV SCH ×2 (01:40→14:27)
[2021-05-04] MEDS: LEVOTHYROXINE 75MCG TABLET (0.075MG) PO SCH (05:15)
[2021-05-04 05:37] LABS: BASO # 0.1 10^3/uL (0.0-0.2); BASO % 0.3 % (0.0-1.0); EOS # 0.1 10^3/uL (0.0-0.5); EOS % 0.5 % (0.0-3.0); HEMATOCRIT 33.9 % (42.0-52.0); HEMOGLOBIN 11.1 g/dl (13.5-17.5); LYMPH % 5.5 % (24.0-44.0); MEAN CORPUSCULAR HEMOGLOBIN 29.4 pg (27.0-33.0); MEAN CORPUSCULAR HGB CONC 32.7 g/dl (32.0-36.5); MEAN CORPUSCULAR VOLUME 89.9 fl (80.0-96.0); MONO # 1.2 10^3/uL (0.0-0.8); MONO % 6.6 % (2.0-8.0); NEUTROPHILS # 15.9 10^3/uL (1.5-8.5); NEUTROPHILS % 85.7 % (36.0-66.0); PLATELET COUNT, AUTOMATED 289 10^3/uL (150-450); RED BLOOD COUNT 3.77 10^6/uL (4.30-6.10); WHITE BLOOD COUNT 18.5 10^3/uL (4.0-10.0)
[2021-05-04 05:48] LABS: INR 1.18; PROTHROMBIN TIME 15.4 SECONDS (12.7-14.5)
[2021-05-04 05:49] LABS: PARTIAL THROMBOPLASTIN TIME 35.6 SECONDS (25.9-37.0)
[2021-05-04 06:15] LABS: ALBUMIN 2.8 GM/DL (3.2-5.2); ALT/SGPT 29 U/L (12-78); BILIRUBIN,DIRECT 0.3 MG/DL (0.0-0.2); BILIRUBIN,TOTAL 0.5 MG/DL (0.2-1.0); BLOOD UREA NITROGEN 17 MG/DL (7-18); CALCIUM LEVEL 8.7 MG/DL (8.8-10.2); CARBON DIOXIDE LEVEL 23 MEQ/L (21-32); CHLORIDE LEVEL 104 MEQ/L (98-107); FERRITIN 845 NG/ML (26-388); GLOMERULAR FILTRATION RATE > 60.0 (>35); GLUCOSE, FASTING 180 MG/DL (70-100); LDH LACTATE DEHYDROGENASE 776 U/L (87-241); MAGNESIUM LEVEL 2.2 MG/DL (1.8-2.4); NT-PRO BNP 1343 PG/ML (<450); POTASSIUM SERUM 3.8 MEQ/L (3.5-5.1); SODIUM LEVEL 135 MEQ/L (136-145); TOTAL PROTEIN 6.2 GM/DL (6.4-8.2)
[2021-05-04] MEDS: NS 1,000 ML IV SCH ×2 (07:31→18:05)
[2021-05-04] MEDS: HumaLOG INSULIN (NovoLOG) PER UNIT SC SCH ×4 (08:38→21:00)
[2021-05-04] MEDS: NYSTATIN 100,000 UNITS/GM TOPICAL PWD 15 GM TOP SCH (08:38)
[2021-05-04] MEDS: ASPIRIN 81MG ENTERIC TABLET PO SCH (08:39)
[2021-05-04] MEDS: METOPROLOL TART 50 MG TAB PO SCH ×2 (08:39→21:50)
[2021-05-04] MEDS: busPIRone 5 MG TAB PO SCH ×2 (08:39→21:19)
[2021-05-04] MEDS: FINASTERIDE 5 MG TAB PO SCH (08:40)
[2021-05-04] MEDS: CLOPIDOGREL 75 MG TAB PO SCH (08:40)
[2021-05-04] MEDS: BARICITINIB 2MG TABLET (OLUMIANT) FOR EUA PO SCH (08:40)
[2021-05-04] MEDS: DULoxetine 30MG CAPSULE (CYMBALTA) PO SCH (08:40)
[2021-05-04] MEDS: ACETAMINOPHEN 500 MG TAB PO SCH ×2 (08:41→21:20)
[2021-05-04] MEDS: dexameTHASONE 4 MG/ML 1ML VIAL (J1100 PER 1MG) IV SCH (08:42)
[2021-05-04] MEDS: OMEPRAZOLE 20MG CAP PO SCH (08:42)
[2021-05-04] MEDS: PREGABALIN 75 MG CAP(LYRICA) PO SCH (08:43)
[2021-05-04] MEDS: LIDOCAINE 5% (LIDODERM) PATCH TD SCH (08:43)
[2021-05-04] MEDS: oxyBUTYnin *DITROPAN XL* 5 MG TABCR PO SCH (09:50)
[2021-05-04] MEDS: cefTRIAXone SOD 1 GM in D5W MINI-BAG PLUS 50 ML IV SCH (12:18)
[2021-05-04] MEDS: guaiFENesin ER 600 MG TAB PO SCH ×2 (12:19→21:19)
[2021-05-04] MEDS: REMDESIVIR 100 MG in NS 250 ML IV SCH (13:19)
[2021-05-04] MEDS: SODIUM CHLORIDE 0.9% INJ 10 ML SYR IV SCH (14:26)
[2021-05-04] MEDS: ROSUVASTATIN 10 MG TAB (CRESTOR) PO SCH (17:10)
[2021-05-04] MEDS: TAMSULOSIN 0.4 MG CAP PO SCH (21:19)
[2021-05-04] MEDS: ENOXAPARIN 40MG/0.4ML SYRINGE (J1650 PER 10MG) SC SCH (21:19)
[2021-05-04] MEDS: **NOTE PATIENT COMMENT** MISC XX SCH (21:20)
[2021-05-05] VITALS: BP 126/70
[2021-05-05] MEDS: NS 1,000 ML IV SCH ×2 (01:03→08:52)
[2021-05-05] MEDS: DOXYCYCLINE HYCLATE 100 MG in D5W MINI-BAG PLUS 100 ML IV SCH ×2 (01:04→14:23)
[2021-05-05 04:00] VITALS: BP 130/67
[2021-05-05 06:00] LABS: BASO % 0.3 % (0.0-1.0); EOS % 0.1 % (0.0-3.0); HEMATOCRIT 30.9 % (42.0-52.0); HEMOGLOBIN 10.1 g/dl (13.5-17.5); LYMPH % 6.6 % (24.0-44.0); MEAN CORPUSCULAR HEMOGLOBIN 29.4 pg (27.0-33.0); MEAN CORPUSCULAR HGB CONC 32.7 g/dl (32.0-36.5); MEAN CORPUSCULAR VOLUME 90.1 fl (80.0-96.0); MONO # 1.2 10^3/uL (0.0-0.8); MONO % 7.5 % (2.0-8.0); NEUTROPHILS # 12.8 10^3/uL (1.5-8.5); NEUTROPHILS % 83.4 % (36.0-66.0); PLATELET COUNT, AUTOMATED 270 10^3/uL (150-450); RED BLOOD COUNT 3.43 10^6/uL (4.30-6.10); WHITE BLOOD COUNT 15.4 10^3/uL (4.0-10.0)
[2021-05-05] MEDS: LEVOTHYROXINE 75MCG TABLET (0.075MG) PO SCH (06:20)
[2021-05-05 06:29] LABS: BLOOD UREA NITROGEN 22 MG/DL (7-18); CALCIUM LEVEL 8.5 MG/DL (8.8-10.2); CARBON DIOXIDE LEVEL 22 MEQ/L (21-32); CHLORIDE LEVEL 111 MEQ/L (98-107); CREATININE FOR GFR 0.86 MG/DL (0.70-1.30); GLOMERULAR FILTRATION RATE > 60.0 (>35); GLUCOSE, FASTING 159 MG/DL (70-100); MAGNESIUM LEVEL 2.4 MG/DL (1.8-2.4); POTASSIUM SERUM 3.8 MEQ/L (3.5-5.1); SODIUM LEVEL 140 MEQ/L (136-145)
[2021-05-05 08:04] VITALS: BP 135/63
[2021-05-05] MEDS: BARICITINIB 2MG TABLET (OLUMIANT) FOR EUA PO SCH (08:48)
[2021-05-05] MEDS: METOPROLOL TART 50 MG TAB PO SCH ×2 (08:48→20:24)
[2021-05-05] MEDS: busPIRone 5 MG TAB PO SCH ×2 (08:48→20:22)
[2021-05-05] MEDS: CLOPIDOGREL 75 MG TAB PO SCH (08:48)
[2021-05-05] MEDS: PREGABALIN 75 MG CAP(LYRICA) PO SCH (08:48)
[2021-05-05] MEDS: ASPIRIN 81MG ENTERIC TABLET PO SCH (08:48)
[2021-05-05] MEDS: DULoxetine 30MG CAPSULE (CYMBALTA) PO SCH (08:48)
[2021-05-05] MEDS: guaiFENesin ER 600 MG TAB PO SCH ×2 (08:49→20:25)
[2021-05-05] MEDS: dexameTHASONE 4 MG/ML 1ML VIAL (J1100 PER 1MG) IV SCH (08:49)
[2021-05-05] MEDS: OMEPRAZOLE 20MG CAP PO SCH (08:49)
[2021-05-05] MEDS: oxyBUTYnin *DITROPAN XL* 5 MG TABCR PO SCH (08:49)
[2021-05-05] MEDS: LIDOCAINE 5% (LIDODERM) PATCH TD SCH (08:49)
[2021-05-05] MEDS: FINASTERIDE 5 MG TAB PO SCH (08:49)
[2021-05-05] MEDS: HumaLOG INSULIN (NovoLOG) PER UNIT SC SCH ×4 (08:50→20:20)
[2021-05-05] MEDS: NYSTATIN 100,000 UNITS/GM TOPICAL PWD 15 GM TOP SCH (08:50)
[2021-05-05] MEDS: ACETAMINOPHEN 500 MG TAB PO SCH ×2 (08:51→20:23)
[2021-05-05 12:15] VITALS: BP 104/55
[2021-05-05] MEDS: cefTRIAXone SOD 1 GM in D5W MINI-BAG PLUS 50 ML IV SCH (12:16)
[2021-05-05] MEDS: DOCUSATE SODIUM 100MG CAPSULE PO PRN ×2 (12:18→20:22)
[2021-05-05] MEDS: REMDESIVIR 100 MG in NS 250 ML IV SCH ×2 (13:09→13:14)
[2021-05-05] MEDS: SODIUM CHLORIDE 0.9% INJ 10 ML SYR IV SCH (13:14)
[2021-05-05 16:40] VITALS: BP 131/59
[2021-05-05] MEDS: ROSUVASTATIN 10 MG TAB (CRESTOR) PO SCH (18:11)
[2021-05-05 20:00] VITALS: BP 129/66
[2021-05-05] MEDS: ENOXAPARIN 40MG/0.4ML SYRINGE (J1650 PER 10MG) SC SCH (20:22)
[2021-05-05] MEDS: RAMELTEON 8 MG TAB (ROZEREM) PO PRN (20:22)
[2021-05-05] MEDS: **NOTE PATIENT COMMENT** MISC XX SCH (20:25)
[2021-05-05] MEDS: TAMSULOSIN 0.4 MG CAP PO SCH (20:25)
[2021-05-06] VITALS (8 sets, daily range): BP systolic 107–158; BP diastolic 59–96
[2021-05-06] MEDS: DOXYCYCLINE HYCLATE 100 MG in D5W MINI-BAG PLUS 100 ML IV SCH (01:50)
[2021-05-06 05:10] LABS: INR 1.18; PROTHROMBIN TIME 15.4 SECONDS (12.7-14.5)
[2021-05-06 05:11] LABS: FIBRINOGEN 404 MG/DL (268-480)
[2021-05-06 05:23] LABS: ALBUMIN 2.3 GM/DL (3.2-5.2); BILIRUBIN,DIRECT 0.2 MG/DL (0.0-0.2); BILIRUBIN,TOTAL 0.5 MG/DL (0.2-1.0); TOTAL PROTEIN 5.6 GM/DL (6.4-8.2)
[2021-05-06 05:40] LABS: D-DIMER QUANT > 4000.00 ng/ml (<500)
[2021-05-06] MEDS: LEVOTHYROXINE 75MCG TABLET (0.075MG) PO SCH (05:40)
[2021-05-06] MEDS: HumaLOG INSULIN (NovoLOG) PER UNIT SC SCH ×4 (07:35→20:38)
[2021-05-06] MEDS: LIDOCAINE 5% (LIDODERM) PATCH TD SCH (08:15)
[2021-05-06] MEDS: dexameTHASONE 4 MG/ML 1ML VIAL (J1100 PER 1MG) IV SCH (08:15)
[2021-05-06] MEDS: BARICITINIB 2MG TABLET (OLUMIANT) FOR EUA PO SCH (08:16)
[2021-05-06] MEDS: DULoxetine 30MG CAPSULE (CYMBALTA) PO SCH (08:16)
[2021-05-06] MEDS: FINASTERIDE 5 MG TAB PO SCH (08:16)
[2021-05-06] MEDS: ACETAMINOPHEN 500 MG TAB PO PRN (08:16)
[2021-05-06] MEDS: guaiFENesin ER 600 MG TAB PO SCH ×2 (08:17→20:40)
[2021-05-06] MEDS: oxyBUTYnin *DITROPAN XL* 5 MG TABCR PO SCH (08:17)
[2021-05-06] MEDS: ASPIRIN 81MG ENTERIC TABLET PO SCH (08:17)
[2021-05-06] MEDS: PREGABALIN 75 MG CAP(LYRICA) PO SCH (08:17)
[2021-05-06] MEDS: busPIRone 5 MG TAB PO SCH ×2 (08:17→20:41)
[2021-05-06] MEDS: CLOPIDOGREL 75 MG TAB PO SCH (08:17)
[2021-05-06] MEDS: LORazepam 0.5 MG TAB PO PRN (08:18)
[2021-05-06] MEDS: METOPROLOL TART 50 MG TAB PO SCH ×2 (08:18→20:40)
[2021-05-06] MEDS: OMEPRAZOLE 20MG CAP PO SCH (08:21)
[2021-05-06] MEDS ORDERED: BISACODYL 10 MG SUPP PR ONE (09:00)
[2021-05-06] MEDS: NYSTATIN 100,000 UNITS/GM TOPICAL PWD 15 GM TOP SCH (09:27)
[2021-05-06] MEDS: ENOXAPARIN 80MG/0.8ML SYRINGE (J1650 PER 10MG) SC SCH ×2 (12:11→22:21)
[2021-05-06] MEDS: MIRALAX *UNIT DOSE* 17GM PACKET PO SCH (12:12)
[2021-05-06] MEDS: REMDESIVIR 100 MG in NS 250 ML IV SCH (13:34)
[2021-05-06] MEDS: SODIUM CHLORIDE 0.9% INJ 10 ML SYR IV SCH (14:18)
[2021-05-06] MEDS ORDERED: ALPRAZolam 0.5 MG TAB PO ONE (15:45)
[2021-05-06] MEDS: ROSUVASTATIN 10 MG TAB (CRESTOR) PO SCH (18:00)
[2021-05-06] MEDS ORDERED: FUROSEMIDE 40MG/4ML VIAL (J1940) IV ONE (18:45)
[2021-05-06 19:28] LABS: ABG BASE EXCESS -4.1 (-2.0-2.0); ABG HCO3 18.9 MEQ/L (22.0-26.0); ABG O2 SATURATION 97.7 % (95.0-99.0); ABG PARTIAL PRESSURE CO2 27.8 mmHg (35.0-45.0); ABG PARTIAL PRESSURE O2 97.2 mmHg (75.0-100.0); ABG STANDARD HCO3 21.1 MEQ/L (22.0-26.0); ABG TOTAL CO2 19.8 MEQ/L (23.0-31.0); ABG pH (ARTERIAL) 7.451 UNITS (7.350-7.450)
[2021-05-06] MEDS: **NOTE PATIENT COMMENT** MISC XX SCH (20:38)
[2021-05-06] MEDS: DOCUSATE SODIUM 100MG CAPSULE PO PRN (20:40)
[2021-05-06] MEDS: TAMSULOSIN 0.4 MG CAP PO SCH (20:41)
[2021-05-06] MEDS: RAMELTEON 8 MG TAB (ROZEREM) PO PRN (20:41)
[2021-05-07] VITALS (17 sets, daily range): BP systolic 96–152; BP diastolic 53–79
[2021-05-07] MEDS: LORazepam 0.5 MG TAB PO PRN (00:20)
[2021-05-07] MEDS: ACETAMINOPHEN 500 MG TAB PO PRN ×2 (02:31→17:10)
[2021-05-07 05:05] LABS: BASO % 0.1 % (0.0-1.0); EOS # 0.1 10^3/uL (0.0-0.5); EOS % 0.3 % (0.0-3.0); HEMATOCRIT 33.4 % (42.0-52.0); HEMOGLOBIN 11.2 g/dl (13.5-17.5); LYMPH # 1.1 10^3/uL (1.5-5.0); LYMPH % 4.6 % (24.0-44.0); MEAN CORPUSCULAR HEMOGLOBIN 29.2 pg (27.0-33.0); MEAN CORPUSCULAR HGB CONC 33.5 g/dl (32.0-36.5); MEAN CORPUSCULAR VOLUME 87.2 fl (80.0-96.0); MONO # 0.5 10^3/uL (0.0-0.8); MONO % 2.1 % (2.0-8.0); NEUTROPHILS # 20.7 10^3/uL (1.5-8.5); NEUTROPHILS % 90.9 % (36.0-66.0); PLATELET COUNT, AUTOMATED 326 10^3/uL (150-450); RED BLOOD COUNT 3.83 10^6/uL (4.30-6.10); WHITE BLOOD COUNT 22.8 10^3/uL (4.0-10.0)
[2021-05-07] MEDS: LEVOTHYROXINE 75MCG TABLET (0.075MG) PO SCH (05:40)
[2021-05-07 05:44] LABS: ALBUMIN 2.6 GM/DL (3.2-5.2); ALT/SGPT 35 U/L (12-78); BILIRUBIN,TOTAL 0.6 MG/DL (0.2-1.0); BLOOD UREA NITROGEN 24 MG/DL (7-18); CALCIUM LEVEL 8.9 MG/DL (8.8-10.2); CARBON DIOXIDE LEVEL 22 MEQ/L (21-32); CHLORIDE LEVEL 104 MEQ/L (98-107); CREATININE FOR GFR 1.09 MG/DL (0.70-1.30); GLOMERULAR FILTRATION RATE > 60.0 (>35); GLUCOSE, FASTING 178 MG/DL (70-100); MAGNESIUM LEVEL 2.5 MG/DL (1.8-2.4); PHOSPHORUS LEVEL 2.5 MG/DL (2.5-4.9); POTASSIUM SERUM 3.7 MEQ/L (3.5-5.1); SODIUM LEVEL 136 MEQ/L (136-145); TOTAL PROTEIN 7.1 GM/DL (6.4-8.2)
[2021-05-07] MEDS: MIRALAX *UNIT DOSE* 17GM PACKET PO SCH (08:04)
[2021-05-07] MEDS: LIDOCAINE 5% (LIDODERM) PATCH TD SCH (08:04)
[2021-05-07] MEDS: busPIRone 5 MG TAB PO SCH ×2 (08:05→20:42)
[2021-05-07] MEDS: ASPIRIN 81MG ENTERIC TABLET PO SCH (08:06)
[2021-05-07] MEDS: BARICITINIB 2MG TABLET (OLUMIANT) FOR EUA PO SCH (08:06)
[2021-05-07] MEDS: FINASTERIDE 5 MG TAB PO SCH (08:07)
[2021-05-07] MEDS: OMEPRAZOLE 20MG CAP PO SCH (08:07)
[2021-05-07] MEDS: HumaLOG INSULIN (NovoLOG) PER UNIT SC SCH ×4 (08:08→20:28)
[2021-05-07] MEDS: DULoxetine 30MG CAPSULE (CYMBALTA) PO SCH (08:09)
[2021-05-07] MEDS: PREGABALIN 75 MG CAP(LYRICA) PO SCH (08:09)
[2021-05-07] MEDS: CLOPIDOGREL 75 MG TAB PO SCH (08:10)
[2021-05-07] MEDS: dexameTHASONE 4 MG/ML 1ML VIAL (J1100 PER 1MG) IV SCH (08:10)
[2021-05-07] MEDS: METOPROLOL TART 50 MG TAB PO SCH ×2 (08:11→20:39)
[2021-05-07] MEDS: guaiFENesin ER 600 MG TAB PO SCH ×2 (08:11→20:42)
[2021-05-07] MEDS: NYSTATIN 100,000 UNITS/GM TOPICAL PWD 15 GM TOP SCH (08:12)
[2021-05-07] MEDS: oxyBUTYnin *DITROPAN XL* 5 MG TABCR PO SCH (08:12)
[2021-05-07] MEDS ORDERED: BISACODYL 10 MG SUPP PR ONE (11:15)
[2021-05-07] MEDS: HALOPERIDOL 5MG/ML VIAL (J1630 PER 1) IV PRN (11:41)
[2021-05-07] MEDS: ENOXAPARIN 80MG/0.8ML SYRINGE (J1650 PER 10MG) SC SCH ×2 (11:42→23:09)
[2021-05-07] MEDS: REMDESIVIR 100 MG in NS 250 ML IV SCH (12:47)
[2021-05-07] MEDS: SODIUM CHLORIDE 0.9% INJ 10 ML SYR IV SCH (13:06)
[2021-05-07] MEDS: ROSUVASTATIN 10 MG TAB (CRESTOR) PO SCH (18:00)
[2021-05-07] MEDS: **NOTE PATIENT COMMENT** MISC XX SCH (20:33)
[2021-05-07] MEDS: RAMELTEON 8 MG TAB (ROZEREM) PO PRN (20:42)
[2021-05-07] MEDS: TAMSULOSIN 0.4 MG CAP PO SCH (20:42)
[2021-05-08] VITALS (35 sets, daily range): BP systolic 98–155; BP diastolic 51–82
[2021-05-08] MEDS: HALOPERIDOL 5MG/ML VIAL (J1630 PER 1) IV PRN (02:37)
[2021-05-08 05:01] LABS: ABG BASE EXCESS -0.3 (-2.0-2.0); ABG HCO3 22.5 MEQ/L (22.0-26.0); ABG O2 SATURATION 97.3 % (95.0-99.0); ABG PARTIAL PRESSURE CO2 30.9 mmHg (35.0-45.0); ABG STANDARD HCO3 24.2 MEQ/L (22.0-26.0); ABG TOTAL CO2 23.4 MEQ/L (23.0-31.0)
[2021-05-08] MEDS: METOPROLOL TART 50 MG TAB PO SCH (05:04)
[2021-05-08] MEDS ORDERED: AMIODARONE HCL 150 MG/100 ML PREMIXED BAG (NEXTERONE) (J0282 PER 30MG) As Ordered ONE (05:10)
[2021-05-08 05:13] LABS: BASO % 0.1 % (0.0-1.0); EOS # 0.1 10^3/uL (0.0-0.5); EOS % 0.7 % (0.0-3.0); HEMATOCRIT 33.3 % (42.0-52.0); HEMOGLOBIN 11.1 g/dl (13.5-17.5); LYMPH # 0.9 10^3/uL (1.5-5.0); MEAN CORPUSCULAR HEMOGLOBIN 29.7 pg (27.0-33.0); MEAN CORPUSCULAR HGB CONC 33.3 g/dl (32.0-36.5); MONO # 0.2 10^3/uL (0.0-0.8); NEUTROPHILS # 16.4 10^3/uL (1.5-8.5); NEUTROPHILS % 91.3 % (36.0-66.0); PLATELET COUNT, AUTOMATED 310 10^3/uL (150-450); RED BLOOD COUNT 3.74 10^6/uL (4.30-6.10); WHITE BLOOD COUNT 17.9 10^3/uL (4.0-10.0)
[2021-05-08] MEDS ORDERED: AMIODARONE HCL 150 MG in IV 1 EA IV STA (05:19)
[2021-05-08] MEDS: LEVOTHYROXINE 75MCG TABLET (0.075MG) PO SCH (05:23)
[2021-05-08 05:47] LABS: ALBUMIN 2.3 GM/DL (3.2-5.2); ALT/SGPT 30 U/L (12-78); BILIRUBIN,TOTAL 0.5 MG/DL (0.2-1.0); BLOOD UREA NITROGEN 32 MG/DL (7-18); CALCIUM LEVEL 8.4 MG/DL (8.8-10.2); CARBON DIOXIDE LEVEL 22 MEQ/L (21-32); CHLORIDE LEVEL 104 MEQ/L (98-107); CREATININE FOR GFR 0.92 MG/DL (0.70-1.30); GLOMERULAR FILTRATION RATE > 60.0 (>35); GLUCOSE, FASTING 157 MG/DL (70-100); POTASSIUM SERUM 3.6 MEQ/L (3.5-5.1); SODIUM LEVEL 135 MEQ/L (136-145)
[2021-05-08 05:49] LABS: CK-MB VALUE MASS 1.1 NG/ML (<3.6); MB/CK RELATIVE INDEX 1.51 (< OR =4)
[2021-05-08] MEDS: ACETAMINOPHEN 500 MG TAB PO PRN ×2 (05:53→20:54)
[2021-05-08 07:04] LABS: CK-MB VALUE MASS 1.5 NG/ML (<3.6); MB/CK RELATIVE INDEX 2.14 (< OR =4)
[2021-05-08] MEDS ORDERED: MORPHINE 4 MG/ML 1ML VIAL/SYRINGE (J2270) IV PRN (07:05)
[2021-05-08] MEDS: HumaLOG INSULIN (NovoLOG) PER UNIT SC SCH ×4 (07:57→20:46)
[2021-05-08] MEDS: busPIRone 5 MG TAB PO SCH ×2 (08:34→20:54)
[2021-05-08] MEDS: PREGABALIN 75 MG CAP(LYRICA) PO SCH (08:35)
[2021-05-08] MEDS: FINASTERIDE 5 MG TAB PO SCH (08:35)
[2021-05-08] MEDS: DULoxetine 30MG CAPSULE (CYMBALTA) PO SCH (08:35)
[2021-05-08] MEDS: BARICITINIB 2MG TABLET (OLUMIANT) FOR EUA PO SCH (08:35)
[2021-05-08] MEDS: CLOPIDOGREL 75 MG TAB PO SCH (08:35)
[2021-05-08] MEDS: ASPIRIN 81MG ENTERIC TABLET PO SCH (08:35)
[2021-05-08] MEDS: oxyBUTYnin *DITROPAN XL* 5 MG TABCR PO SCH (08:36)
[2021-05-08] MEDS: guaiFENesin ER 600 MG TAB PO SCH ×2 (08:36→20:53)
[2021-05-08] MEDS: OMEPRAZOLE 20MG CAP PO SCH (08:36)
[2021-05-08] MEDS: dexameTHASONE 4 MG/ML 1ML VIAL (J1100 PER 1MG) IV SCH (08:37)
[2021-05-08] MEDS: LIDOCAINE 5% (LIDODERM) PATCH TD SCH (08:38)
[2021-05-08] MEDS: NYSTATIN 100,000 UNITS/GM TOPICAL PWD 15 GM TOP SCH (08:38)
[2021-05-08] MEDS: MIRALAX *UNIT DOSE* 17GM PACKET PO SCH (08:41)
[2021-05-08] MEDS ORDERED: AMIODARONE HCL 360 MG in IV 1 EA IV SCH (11:15)
[2021-05-08] MEDS: ENOXAPARIN 80MG/0.8ML SYRINGE (J1650 PER 10MG) SC SCH ×2 (11:32→22:17)
[2021-05-08] MEDS: REMDESIVIR 100 MG in NS 250 ML IV SCH (13:45)
[2021-05-08] MEDS: SODIUM CHLORIDE 0.9% INJ 10 ML SYR IV SCH (13:45)
[2021-05-08 15:36] LABS: MAGNESIUM LEVEL 2.3 MG/DL (1.7-2.2)
[2021-05-08] MEDS: AMIODARONE HCL 360 MG in IV 1 EA IV SCH (17:49)
[2021-05-08] MEDS: ROSUVASTATIN 10 MG TAB (CRESTOR) PO SCH (17:49)
[2021-05-08] MEDS: **NOTE PATIENT COMMENT** MISC XX SCH (20:09)
[2021-05-08] MEDS: TAMSULOSIN 0.4 MG CAP PO SCH (20:54)
[2021-05-08] MEDS: RAMELTEON 8 MG TAB (ROZEREM) PO PRN (20:54)
[2021-05-08] MEDS ORDERED: METOPROLOL TART 50 MG TAB PO SCH (21:00)
[2021-05-08] MEDS ORDERED: METOPROLOL TART 25 MG TABLET PO ONE (21:25)
[2021-05-09] VITALS (15 sets, daily range): BP systolic 92–144; BP diastolic 54–85; O2SAT 94
[2021-05-09] MEDS: AMIODARONE HCL 360 MG in IV 1 EA IV SCH (04:31)
[2021-05-09 05:00] LABS: BASO % 0.1 % (0.0-1.0); EOS % 0.1 % (0.0-3.0); HEMATOCRIT 31.7 % (42.0-52.0); HEMOGLOBIN 10.5 g/dl (13.5-17.5); LYMPH # 0.7 10^3/uL (1.5-5.0); MEAN CORPUSCULAR HEMOGLOBIN 29.4 pg (27.0-33.0); MEAN CORPUSCULAR HGB CONC 33.1 g/dl (32.0-36.5); MEAN CORPUSCULAR VOLUME 88.8 fl (80.0-96.0); MONO # 0.3 10^3/uL (0.0-0.8); MONO % 1.8 % (2.0-8.0); NEUTROPHILS % 92.4 % (36.0-66.0); PLATELET COUNT, AUTOMATED 330 10^3/uL (150-450); RED BLOOD COUNT 3.57 10^6/uL (4.30-6.10); WHITE BLOOD COUNT 18.4 10^3/uL (4.0-10.0)
[2021-05-09 05:21] LABS: ALBUMIN 2.1 GM/DL (3.2-5.2); ALT/SGPT 33 U/L (12-78); BILIRUBIN,TOTAL 0.4 MG/DL (0.2-1.0); BLOOD UREA NITROGEN 24 MG/DL (7-18); CALCIUM LEVEL 8.4 MG/DL (8.8-10.2); CARBON DIOXIDE LEVEL 23 MEQ/L (21-32); CHLORIDE LEVEL 104 MEQ/L (98-107); CREATININE FOR GFR 0.87 MG/DL (0.70-1.30); GLOMERULAR FILTRATION RATE > 60.0 (>35); GLUCOSE, FASTING 201 MG/DL (70-100); POTASSIUM SERUM 3.7 MEQ/L (3.5-5.1); SODIUM LEVEL 135 MEQ/L (136-145); TOTAL PROTEIN 6.5 GM/DL (6.4-8.2)
[2021-05-09] MEDS: LEVOTHYROXINE 75MCG TABLET (0.075MG) PO SCH (06:14)
[2021-05-09] MEDS: HumaLOG INSULIN (NovoLOG) PER UNIT SC SCH ×4 (07:56→20:27)
[2021-05-09] MEDS: dexameTHASONE 4 MG/ML 1ML VIAL (J1100 PER 1MG) IV SCH (08:55)
[2021-05-09] MEDS: guaiFENesin ER 600 MG TAB PO SCH ×2 (08:57→20:13)
[2021-05-09] MEDS: ASPIRIN 81MG ENTERIC TABLET PO SCH (08:57)
[2021-05-09] MEDS: DULoxetine 30MG CAPSULE (CYMBALTA) PO SCH (08:57)
[2021-05-09] MEDS: PREGABALIN 75 MG CAP(LYRICA) PO SCH (08:57)
[2021-05-09] MEDS: CLOPIDOGREL 75 MG TAB PO SCH (08:57)
[2021-05-09] MEDS: busPIRone 5 MG TAB PO SCH ×2 (08:57→20:13)
[2021-05-09] MEDS: OMEPRAZOLE 20MG CAP PO SCH (08:57)
[2021-05-09] MEDS: FINASTERIDE 5 MG TAB PO SCH (08:58)
[2021-05-09] MEDS: oxyBUTYnin *DITROPAN XL* 5 MG TABCR PO SCH (08:58)
[2021-05-09] MEDS: BARICITINIB 2MG TABLET (OLUMIANT) FOR EUA PO SCH (08:58)
[2021-05-09] MEDS: NYSTATIN 100,000 UNITS/GM TOPICAL PWD 15 GM TOP SCH (08:59)
[2021-05-09] MEDS: MIRALAX *UNIT DOSE* 17GM PACKET PO SCH (08:59)
[2021-05-09] MEDS: METOPROLOL TART 50 MG TAB PO SCH ×2 (08:59→20:13)
[2021-05-09] MEDS: LIDOCAINE 5% (LIDODERM) PATCH TD SCH (09:00)
[2021-05-09] MEDS: ENOXAPARIN 80MG/0.8ML SYRINGE (J1650 PER 10MG) SC SCH ×2 (11:02→22:35)
[2021-05-09] MEDS: REMDESIVIR 100 MG in NS 250 ML IV SCH (12:15)
[2021-05-09] MEDS: SODIUM CHLORIDE 0.9% INJ 10 ML SYR IV SCH (13:39)
[2021-05-09] MEDS ORDERED: RAMELTEON 8 MG TAB (ROZEREM) PO ONE (16:30)
[2021-05-09] MEDS: RAMELTEON 8 MG TAB (ROZEREM) PO PRN (17:16)
[2021-05-09] MEDS: ROSUVASTATIN 10 MG TAB (CRESTOR) PO SCH (17:16)
[2021-05-09] MEDS: HALOPERIDOL 5MG/ML VIAL (J1630 PER 1) IV PRN (18:24)
[2021-05-09] MEDS: TAMSULOSIN 0.4 MG CAP PO SCH (20:12)
[2021-05-09] MEDS: **NOTE PATIENT COMMENT** MISC XX SCH (20:57)
[2021-05-10] VITALS (7 sets, daily range): BP systolic 107–148; BP diastolic 57–72
[2021-05-10 04:38] LABS: BASO % 0.2 % (0.0-1.0); EOS # 0.1 10^3/uL (0.0-0.5); EOS % 0.2 % (0.0-3.0); HEMATOCRIT 34.4 % (42.0-52.0); HEMOGLOBIN 11.3 g/dl (13.5-17.5); LYMPH # 1.2 10^3/uL (1.5-5.0); LYMPH % 4.5 % (24.0-44.0); MEAN CORPUSCULAR HEMOGLOBIN 29.9 pg (27.0-33.0); MEAN CORPUSCULAR HGB CONC 32.8 g/dl (32.0-36.5); MONO # 0.4 10^3/uL (0.0-0.8); MONO % 1.5 % (2.0-8.0); NEUTROPHILS # 24.2 10^3/uL (1.5-8.5); NEUTROPHILS % 91.9 % (36.0-66.0); PLATELET COUNT, AUTOMATED 395 10^3/uL (150-450); RED BLOOD COUNT 3.78 10^6/uL (4.30-6.10); WHITE BLOOD COUNT 26.4 10^3/uL (4.0-10.0)
[2021-05-10 05:01] LABS: ALBUMIN 2.1 GM/DL (3.2-5.2); ALT/SGPT 34 U/L (12-78); BILIRUBIN,TOTAL 0.4 MG/DL (0.2-1.0); BLOOD UREA NITROGEN 26 MG/DL (7-18); CALCIUM LEVEL 8.5 MG/DL (8.8-10.2); CARBON DIOXIDE LEVEL 23 MEQ/L (21-32); CHLORIDE LEVEL 106 MEQ/L (98-107); CREATININE FOR GFR 0.82 MG/DL (0.70-1.30); GLOMERULAR FILTRATION RATE > 60.0 (>35); GLUCOSE, FASTING 169 MG/DL (70-100); POTASSIUM SERUM 3.8 MEQ/L (3.5-5.1); SODIUM LEVEL 135 MEQ/L (136-145); TOTAL PROTEIN 6.4 GM/DL (6.4-8.2)
[2021-05-10] MEDS: LEVOTHYROXINE 75MCG TABLET (0.075MG) PO SCH (05:37)
[2021-05-10] MEDS: HumaLOG INSULIN (NovoLOG) PER UNIT SC SCH ×4 (07:30→19:51)
[2021-05-10] MEDS: AMIODARONE 200 MG TAB (PACERONE) PO SCH ×2 (08:21→20:11)
[2021-05-10] MEDS: BARICITINIB 2MG TABLET (OLUMIANT) FOR EUA PO SCH (08:21)
[2021-05-10] MEDS: DULoxetine 30MG CAPSULE (CYMBALTA) PO SCH (08:21)
[2021-05-10] MEDS: busPIRone 5 MG TAB PO SCH ×2 (08:21→20:11)
[2021-05-10] MEDS: ASPIRIN 81MG ENTERIC TABLET PO SCH (08:21)
[2021-05-10] MEDS: PREGABALIN 75 MG CAP(LYRICA) PO SCH (08:21)
[2021-05-10] MEDS: OMEPRAZOLE 20MG CAP PO SCH (08:21)
[2021-05-10] MEDS: guaiFENesin ER 600 MG TAB PO SCH ×2 (08:21→20:10)
[2021-05-10] MEDS: ACETAMINOPHEN 500 MG TAB PO PRN ×2 (08:22→20:41)
[2021-05-10] MEDS: METOPROLOL TART 50 MG TAB PO SCH ×2 (08:22→20:11)
[2021-05-10] MEDS: oxyBUTYnin *DITROPAN XL* 5 MG TABCR PO SCH (08:22)
[2021-05-10] MEDS: MIRALAX *UNIT DOSE* 17GM PACKET PO SCH (08:23)
[2021-05-10] MEDS: CLOPIDOGREL 75 MG TAB PO SCH (08:23)
[2021-05-10] MEDS: FINASTERIDE 5 MG TAB PO SCH (08:23)
[2021-05-10] MEDS: NYSTATIN 100,000 UNITS/GM TOPICAL PWD 15 GM TOP SCH (08:24)
[2021-05-10] MEDS: LIDOCAINE 5% (LIDODERM) PATCH TD SCH (08:24)
[2021-05-10] MEDS: HALOPERIDOL 5MG/ML VIAL (J1630 PER 1) IV PRN ×2 (08:25→21:01)
[2021-05-10] MEDS ORDERED: MORPHINE 2 MG/ML 1ML VIAL (J2270) IV PRN (09:49)
[2021-05-10] MEDS: dexameTHASONE 20MG/5ML VIAL (J1100 PER 1MG) IV SCH (11:11)
[2021-05-10] MEDS: ENOXAPARIN 80MG/0.8ML SYRINGE (J1650 PER 10MG) SC SCH ×2 (11:11→20:12)
[2021-05-10] MEDS: ROSUVASTATIN 10 MG TAB (CRESTOR) PO SCH (18:16)
[2021-05-10] MEDS: **NOTE PATIENT COMMENT** MISC XX SCH (19:53)
[2021-05-10] MEDS: TAMSULOSIN 0.4 MG CAP PO SCH (20:11)
[2021-05-10] MEDS: RAMELTEON 8 MG TAB (ROZEREM) PO PRN (20:11)
[2021-05-11] VITALS: BP 112/58
[2021-05-11] MEDS: HALOPERIDOL 5MG/ML VIAL (J1630 PER 1) IV PRN (03:30)
[2021-05-11 04:00] VITALS: BP 120/57
[2021-05-11] MEDS ORDERED: HALOPERIDOL 5MG/ML VIAL (J1630 PER 1) As Ordered ONE (05:22)
[2021-05-11] MEDS ORDERED: HALOPERIDOL 5MG/ML VIAL (J1630 PER 1) IV STA (05:27)
[2021-05-11 05:50] LABS: EOS % 0.1 % (0.0-3.0); HEMATOCRIT 34.3 % (42.0-52.0); HEMOGLOBIN 11.1 g/dl (13.5-17.5); LYMPH # 0.8 10^3/uL (1.5-5.0); LYMPH % 3.8 % (24.0-44.0); MEAN CORPUSCULAR HEMOGLOBIN 29.1 pg (27.0-33.0); MEAN CORPUSCULAR HGB CONC 32.4 g/dl (32.0-36.5); MONO # 0.4 10^3/uL (0.0-0.8); MONO % 2.1 % (2.0-8.0); NEUTROPHILS % 92.5 % (36.0-66.0); PLATELET COUNT, AUTOMATED 367 10^3/uL (150-450); RED BLOOD COUNT 3.81 10^6/uL (4.30-6.10); WHITE BLOOD COUNT 20.6 10^3/uL (4.0-10.0)
[2021-05-11] MEDS: LEVOTHYROXINE 75MCG TABLET (0.075MG) PO SCH (05:59)
[2021-05-11 06:14] LABS: ALBUMIN 2.1 GM/DL (3.2-5.2); ALT/SGPT 29 U/L (12-78); BILIRUBIN,TOTAL 0.5 MG/DL (0.2-1.0); BLOOD UREA NITROGEN 29 MG/DL (7-18); CALCIUM LEVEL 8.3 MG/DL (8.8-10.2); CARBON DIOXIDE LEVEL 22 MEQ/L (21-32); CHLORIDE LEVEL 105 MEQ/L (98-107); CREATININE FOR GFR 0.74 MG/DL (0.70-1.30); GLOMERULAR FILTRATION RATE > 60.0 (>35); GLUCOSE, FASTING 144 MG/DL (70-100); SODIUM LEVEL 139 MEQ/L (136-145); TOTAL PROTEIN 5.9 GM/DL (6.4-8.2)
[2021-05-11] MEDS: HumaLOG INSULIN (NovoLOG) PER UNIT SC SCH (07:30)
[2021-05-11] MEDS ORDERED: SCOPOLAMINE 1MG TRANSDERMAL PATCH TOP PRN (07:40)
[2021-05-11] MEDS ORDERED: ONDANSETRON 4MG/2ML VIAL IV PRN (07:40)
[2021-05-11] MEDS ORDERED: LORazepam 2 MG/ML VIAL As Ordered ONE ×2 (07:55→11:14)
[2021-05-11] MEDS: LORazepam 2 MG/ML VIAL IV PRN ×4 (07:59→18:54)
[2021-05-11] MEDS: MORPHINE 2 MG/ML 1ML VIAL (J2270) IV PRN ×5 (08:00→23:59)
[2021-05-11] MEDS: oxyBUTYnin *DITROPAN XL* 5 MG TABCR PO SCH (08:14)
[2021-05-11] MEDS: ASPIRIN 81MG ENTERIC TABLET PO SCH (08:14)
[2021-05-11] MEDS: busPIRone 5 MG TAB PO SCH (08:14)
[2021-05-11] MEDS: DULoxetine 30MG CAPSULE (CYMBALTA) PO SCH (08:14)
[2021-05-11] MEDS: METOPROLOL TART 50 MG TAB PO SCH (08:14)
[2021-05-11] MEDS: PREGABALIN 75 MG CAP(LYRICA) PO SCH (08:14)
[2021-05-11] MEDS: dexameTHASONE 20MG/5ML VIAL (J1100 PER 1MG) IV SCH (08:15)
[2021-05-11] MEDS: guaiFENesin ER 600 MG TAB PO SCH (08:15)
[2021-05-11] MEDS: FINASTERIDE 5 MG TAB PO SCH (08:15)
[2021-05-11] MEDS: AMIODARONE 200 MG TAB (PACERONE) PO SCH (08:15)
[2021-05-11] MEDS: BARICITINIB 2MG TABLET (OLUMIANT) FOR EUA PO SCH (08:15)
[2021-05-11] MEDS: CLOPIDOGREL 75 MG TAB PO SCH (08:15)
[2021-05-11] MEDS: OMEPRAZOLE 20MG CAP PO SCH (08:15)
[2021-05-11] MEDS: MIRALAX *UNIT DOSE* 17GM PACKET PO SCH (08:15)
[2021-05-11] MEDS: NYSTATIN 100,000 UNITS/GM TOPICAL PWD 15 GM TOP SCH (08:16)
[2021-05-11] MEDS: LIDOCAINE 5% (LIDODERM) PATCH TD SCH (09:00)
[2021-05-11 20:00] VITALS: BP 120/57
[2021-05-11] MEDS: **NOTE PATIENT COMMENT** MISC XX SCH (21:09)
[2021-05-12] MEDS: MORPHINE 2 MG/ML 1ML VIAL (J2270) IV PRN ×7 (03:08→20:40)
[2021-05-12] MEDS: LORazepam 2 MG/ML VIAL IV PRN ×6 (05:57→21:35)
[2021-05-12] MEDS: LIDOCAINE 5% (LIDODERM) PATCH TD SCH (08:18)
[2021-05-12] MEDS: ASPIRIN 81MG ENTERIC TABLET PO SCH (08:18)
[2021-05-12] MEDS: NYSTATIN 100,000 UNITS/GM TOPICAL PWD 15 GM TOP SCH (08:19)
[2021-05-12] MEDS: PREGABALIN 75 MG CAP(LYRICA) PO SCH (08:19)
[2021-05-12 19:52] VITALS: BP 141/65
[2021-05-12] MEDS: **NOTE PATIENT COMMENT** MISC XX SCH (20:05)
[2021-05-13] MEDS: LORazepam 2 MG/ML VIAL IV PRN ×5 (01:25→14:26)
[2021-05-13] MEDS: MORPHINE 4 MG/ML 1ML VIAL/SYRINGE (J2270) IV PRN ×4 (03:48→16:08)
[2021-05-13] MEDS: ACETAMINOPHEN 650 MG SUPP PR PRN ×3 (03:48→14:37)
[2021-05-13] MEDS ORDERED: PREGABALIN 75 MG CAP(LYRICA) PO SCH (09:00)
[2021-05-13] MEDS: NYSTATIN 100,000 UNITS/GM TOPICAL PWD 15 GM TOP SCH (09:13)
[2021-05-13] MEDS: LIDOCAINE 5% (LIDODERM) PATCH TD SCH (09:13)
== END 2021-05-13 17:30 | disposition expired | DRG 177 ==
LOC: M 4MAIN 09:59 → M ICU 18:44
PROVIDERS: ADMIT Internal Medicine; ATTEND Internal Medicine
PROC: 3E0333Z Introduction of Anti-inflammatory into Peripheral Vein, Percutaneous Approach (ICD-10-PCS; principal; 2021-04-30)
PROC: XW033E5 Introduction of Remdesivir Anti-infective into Peripheral Vein, Percutaneous Approach, New Technology Group 5 (ICD-10-PCS; 2021-05-01)
DX: U07.1 COVID-19 (principal); J12.82 Pneumonia due to coronavirus disease 2019; J18.9 Pneumonia, unspecified organism; J96.01 Acute respiratory failure with hypoxia; B37.0 Candidal stomatitis; I47.2 Ventricular tachycardia; I50.22 Chronic systolic (congestive) heart failure; Z66 Do not resuscitate; E03.9 Hypothyroidism, unspecified; E11.9 Type 2 diabetes mellitus without complications; K21.9 Gastro-esophageal reflux disease without esophagitis; Z85.810 Personal history of malignant neoplasm of tongue; I25.10 Atherosclerotic heart disease of native coronary artery without angina pectoris; N40.0 Benign prostatic hyperplasia without lower urinary tract symptoms; Z87.891 Personal history of nicotine dependence; F41.9 Anxiety disorder, unspecified; K59.00 Constipation, unspecified; Z79.82 Long term (current) use of aspirin; Z79.84 Long term (current) use of oral hypoglycemic drugs; Z79.899 Other long term (current) drug therapy; R94.31 Abnormal electrocardiogram [ECG] [EKG]; R07.89 Other chest pain; I11.0 Hypertensive heart disease with heart failure; Z95.5 Presence of coronary angioplasty implant and graft; F32.A Depression, unspecified; G47.00 Insomnia, unspecified